=== PATIENT | male | born 2000 | race American Indian/Alaskan Native ===

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

== ENCOUNTER 2019-03-16 12:00 | Emergency (ER) | payer SELFPAY ==
[2019-03-16 12:23] VITALS: BP 137/75
--- NOTE | 2019-03-16 12:31 | Event Note ---
ED Screening Note Date of service: 03/16/19 Time: 12:29 ED Screening Note: 18 yo M w/ hx of asthma presents w/ SOB. Reports onset of cough, fever, body aches 2 days ago. Pt states he ran out of his inhaler. Actively coughing, wheezing noted on exam. O2 sats normal. Albuterol/atrovent nebs ordered. Pt transported by RN to start neb treatment. This initial assessment/diagnostic orders/clinical plan/treatment(s) is/are subject to change based on patients health status, clinical progression and re- assessment by fellow clinical providers in the ED. Further treatment and workup at subsequent clinical providers discretion. Patient/guardian urged not to elope from the ED as their condition may be serious if not clinically assessed and managed. Initial orders include: albuterol/atrovent nebs CXR Rapid flu
[2019-03-16] MEDS: ALBUTEROL 2.5 MG/3 ML NEBU IH ONE (12:38)
[2019-03-16] MEDS: IPRATROPIUM 0.02% NEBU 2.5 ML IH ONE (12:38)
--- NOTE | 2019-03-16 13:13 | Emergency Department Report ---
ED Asthma HPI - General Chief Complaint: Upper Respiratory Infection Stated Complaint: flu sym Time Seen by Provider: 03/16/19 12:58 Source: patient Mode of arrival: Ambulatory Limitations: No Limitations - History of Present Illness MD Complaint: "asthma attack", shortness of breath, wheezing -: days(s) (3) Severity: mild, moderate Context: recent URI, ran out of meds Associated Symptoms: dry cough - Related Data Current Asthma Therapy: inhaled bronchodilator (but ramn out) Previous Rx's Medication Instructions Recorded Last Taken Type predniSONE [Deltasone] 3 tab PO QDAY 3 Days #9 tab 10/16/18 Unknown Rx Albuterol INH(or & Nicu Only) 2 puff IH QID PRN #1 device 03/16/19 Unknown Rx [ProAir HFA Inhaler] Montelukast [Singulair] 10 mg PO QPM #7 tablet 03/16/19 Unknown Rx predniSONE [Deltasone] 50 mg PO QDAY #7 tab 03/16/19 Unknown Rx Allergies Allergy/AdvReac Type Severity Reaction Status Date / Time amoxicillin Allergy Unknown Verified 10/16/18 16:08 coconut Allergy Unknown Verified 10/16/18 16:08 Penicillins Allergy Unknown Verified 10/16/18 16:08 strawberry Allergy Unknown Verified 10/16/18 16:08 ED Review of Systems ROS: Stated complaint: flu sym Other details as noted in HPI Comment: All other systems reviewed and negative ED Past Medical Hx - Past Medical History Previous Medical History?: Yes Hx Hypertension: Yes Hx Asthma: Yes - Surgical History Past Surgical History?: No - Social History Smoking Status: Never Smoker Substance Use Type: Marijuana - Medications Home Medications: Home Medications Medication Instructions Recorded Confirmed Last Taken Type predniSONE [Deltasone] 3 tab PO QDAY 3 Days #9 tab 10/16/18 Unknown Rx Albuterol INH(or & Nicu Only) 2 puff IH QID PRN #1 device 03/16/19 Unknown Rx [ProAir HFA Inhaler] Montelukast [Singulair] 10 mg PO QPM #7 tablet 03/16/19 Unknown Rx predniSONE [Deltasone] 50 mg PO QDAY #7 tab 03/16/19 Unknown Rx ED Physical Exam - General Limitations: No Limitations General appearance: alert, in no apparent distress - Head Head exam: Present: atraumatic, normocephalic - Eye Eye exam: Present: normal appearance - ENT ENT exam: Present: mucous membranes moist - Neck Neck exam: Present: normal inspection - Respiratory Respiratory exam: Present: normal lung sounds bilaterally, wheezes. Absent: respiratory distress, rales, rhonchi, chest wall tenderness, accessory muscle use - Cardiovascular Cardiovascular Exam: Present: regular rate, normal rhythm. Absent: systolic murmur, diastolic murmur, rubs, gallop - GI/Abdominal GI/Abdominal exam: Present: soft, normal bowel sounds. Absent: distended, tenderness - Rectal Rectal exam: Present: deferred - Extremities Exam Extremities exam: Present: normal inspection - Back Exam Back exam: Present: normal inspection - Neurological Exam Neurological exam: Present: alert, oriented X3 - Psychiatric Psychiatric exam: Present: normal affect, normal mood - Skin Skin exam: Present: warm, dry, intact, normal color. Absent: rash ED Course Vital Signs 03/16/19 03/16/19 12:05 12:23 Temperature 99.7 F H 99.1 F Pulse Rate 97 H 95 H Respiratory 16 22 Rate Blood Pressure 137/75 137/75 O2 Sat by Pulse 97 99 Oximetry ED Medical Decision Making - Radiology Data Radiology results: report reviewed [facility] [address] [place] [address] XRay Report Signed Patient: HALLE ENGLISH MR#: [id number] 9 : 2000 Acct:[id number] Age/Sex: 18 / M ADM Date: 03/16/19 Loc: ED Attending Dr: Ordering Physician: JAYCEE WHITE MD Date of Service: 03/16/19 Procedure(s): XR chest routine 2V Accession Number(s): [id number] cc: JAYCEE WHITE MD Fluoro Time In Minutes: CHEST 2 VIEWS INDICATION / CLINICAL INFORMATION: cough, sob. COMPARISON: 10/16/2018 FINDINGS: SUPPORT DEVICES: None. HEART / MEDIASTINUM: No significant abnormality. LUNGS / PLEURA: No significant pulmonary or pleural abnormality. No pneumothorax. ADDITIONAL FINDINGS: No significant additional findings. IMPRESSION: 1. No acute findings. Signer Name: Antony Wu MD Signed: 03/16/2019 1:27 PM Workstation Name: [id number] Transcribed By: JASPER Dictated By: Antony Wu MD Electronically Authenticated By: Antony Wu MD Signed Date/Time: 03/16/191326 DD/ 26 TD/TT: - Medical Decision Making MDM This patient presents with dyspnea, most likely secondary to URI and Asthma. Differential diagnosis includes Asthma. Presentation not consistent with acute cardiac etiologies to include ACS , CHF, pericardial effusion / tamponade . Presentation not consistent with acute respiratory etiologies to include acute PE , pneumothorax , asthma, COPD exacerbation, allergic etiologies, or infectious etiologies such as PNA. Presentation also not consistent with non-cardiopulmonary causes to include toxidromes, metabolic etiologies such as acidemia or electrolyte derangements, sepsis, neurologic causes (i.e. demyelinating diseases). Symptoms improved with Albuterol and steroids. Able to ambulate and tolerate oral. Speaks in full sentences Plan: supplemental O2, CXR, labs, troponin, close hemodynamic monitoring, serial reassessment Critical care attestation.: If time is entered above; I have spent that time in minutes in the direct care of this critically ill patient, excluding procedure time. ED Disposition Clinical Impression: Asthma attack, URI (upper respiratory infection) Disposition: - TO HOME OR SELFCARE Is pt being admited?: No Does the pt Need Aspirin: No Condition: Stable Instructions: Asthma (ED), Upper Respiratory Infection (ED) Prescriptions: predniSONE [Deltasone] 50 mg PO QDAY #7 tab Albuterol INH(or & Nicu Only) [ProAir HFA Inhaler] 2 puff IH QID PRN #1 device PRN Reason: Shortness Of Breath Montelukast [Singulair] 10 mg PO QPM #7 tablet Referrals: LOYD NAGY MD [Staff Physician] - 2-3 Days
[2019-03-16] MEDS: methylPREDNISolone Sod Succinate 125 MG/2 ML INJ IV ONE (13:30)
[2019-03-16] MEDS: predniSONE 50 MG TAB PO STA (13:30)
--- NOTE | 2019-03-16 13:32 | XRay Report ---
CHEST 2 VIEWS INDICATION / CLINICAL INFORMATION: cough, sob. COMPARISON: 10/16/2018 FINDINGS: SUPPORT DEVICES: None. HEART / MEDIASTINUM: No significant abnormality. LUNGS / PLEURA: No significant pulmonary or pleural abnormality. No pneumothorax. ADDITIONAL FINDINGS: No significant additional findings. IMPRESSION: 1. No acute findings. Signer Name: Antony Wu MD Signed: 03/16/2019 1:27 PM Workstation Name: [id number]
[2019-03-16] MEDS: IBUPROFEN 800 MG TAB PO ONE (15:24)
== END 2019-03-16 15:33 | disposition home or self-care (01) ==
LOC: ED 12:00
DX: J45.909 Unspecified asthma, uncomplicated (principal); J06.9 Acute upper respiratory infection, unspecified; I10 Essential (primary) hypertension; F12.10 Cannabis abuse, uncomplicated; Z79.899 Other long term (current) drug therapy; Z88.1 Allergy status to other antibiotic agents; Z88.0 Allergy status to penicillin; Z91.018 Allergy to other foods
CPT/HCPCS: 71046; 87400; 94640; 99284; J7512

== ENCOUNTER 2020-04-16 19:20 | Emergency (ER) | payer SELFPAY ==
[2020-04-16 20:30] VITALS: BP 128/76
--- NOTE | 2020-04-16 20:36 | Emergency Department Report ---
ED Male HPI - General Stated complaint: POSS STD/PENILE DISCHARGE Time Seen by Provider: 04/16/20 20:30 Source: patient, RN notes reviewed Limitations: No Limitations - History of Present Illness Initial comments: This is a 19-year-old male nontoxic, well nourished in appearance, no acute signs of distress presents to the ED with c/o of penile discharge x1 day. Patient describes penile discharge as whitish in color and is intermittent. Stated worse in the mornings. Patient denies any testicular pain or swelling. Patient denies any penile ulcers or lesions. Patient denies any nausea, vomitin g, chest pain, shortness of breathe, fever, chills, headache, back pain, numbness, tingling, stiff neck. Patient denies any urinary symptoms. MD Complaint: penile discharge -: days(s) Location: penis Radiation: none Severity scale (0 -10): 0 Consistency: intermittent Improves with: none Worsens with: none discharge. denies: swelling, mass, rash, urinary retention, blood in urine, dysuria, fever, nausea/vomiting, incontinence - Related Data Sexually active: Yes Previous Rx's Medication Instructions Recorded Last Taken Type predniSONE [Deltasone] 3 tab PO QDAY 3 Days #9 tab 10/16/18 Unknown Rx Albuterol Mdi (or & Nicu Only) 2 puff IH QID PRN #1 device 03/16/19 Unknown Rx [ProAir HFA Inhaler] Montelukast [Singulair] 10 mg PO QPM #7 tablet 03/16/19 Unknown Rx predniSONE [Deltasone] 50 mg PO QDAY #7 tab 03/16/19 Unknown Rx Allergies Allergy/AdvReac Type Severity Reaction Status Date / Time amoxicillin Allergy Unknown Verified 10/16/18 16:08 coconut Allergy Unknown Verified 10/16/18 16:08 Penicillins Allergy Unknown Verified 10/16/18 16:08 strawberry Allergy Unknown Verified 10/16/18 16:08 ED Review of Systems ROS: Stated complaint: POSS STD/PENILE DISCHARGE Other details as noted in HPI Comment: All other systems reviewed and negative Constitutional: denies: chills, fever Eyes: denies: eye pain, eye discharge, vision change ENT: denies: ear pain, throat pain Respiratory: denies: cough, shortness of breath, wheezing Cardiovascular: denies: chest pain, palpitations Endocrine: no symptoms reported Gastrointestinal: denies: abdominal pain, nausea, diarrhea Genitourinary: denies: urgency, dysuria Musculoskeletal: denies: back pain, joint swelling, arthralgia Skin: denies: rash, lesions Neurological: denies: headache, weakness, paresthesias Psychiatric: denies: anxiety, depression Hematological/Lymphatic: denies: easy bleeding, easy bruising ED Past Medical Hx - Past Medical History Hx Hypertension: Yes Hx Asthma: Yes - Social History Smoking Status: Never Smoker Substance Use Type: Marijuana - Medications Home Medications: Home Medications Medication Instructions Recorded Confirmed Last Taken Type predniSONE [Deltasone] 3 tab PO QDAY 3 Days #9 tab 10/16/18 Unknown Rx Albuterol Mdi (or & Nicu Only) 2 puff IH QID PRN #1 device 03/16/19 Unknown Rx [ProAir HFA Inhaler] Montelukast [Singulair] 10 mg PO QPM #7 tablet 03/16/19 Unknown Rx predniSONE [Deltasone] 50 mg PO QDAY #7 tab 03/16/19 Unknown Rx ED Physical Exam - General General appearance: alert, in no apparent distress - Head Head exam: Present: atraumatic, normocephalic - Eye Eye exam: Present: normal appearance - Neck Neck exam: Present: normal inspection, full ROM - Respiratory Respiratory exam: Absent: respiratory distress - Cardiovascular Cardiovascular Exam: Present: regular rate - GI/Abdominal GI/Abdominal exam: Present: soft. Absent: distended, tenderness - Extremities Exam Extremities exam: Present: full ROM - Back Exam Back exam: Present: full ROM - Neurological Exam Neurological exam: Present: alert, oriented X3, normal gait - Psychiatric Psychiatric exam: Present: normal affect, normal mood - Skin Skin exam: Present: warm, dry, intact, normal color. Absent: rash ED Course Vital Signs 04/16/20 20:26 Temperature 98.4 F Pulse Rate 76 Respiratory 16 Rate Blood Pressure 128/76 O2 Sat by Pulse 99 Oximetry - Reevaluation(s) Reevaluation #1: 04/16/20 20:34 Patient is speaking in full sentences with no signs of distress noted. ED Medical Decision Making - Medical Decision Making This is a 19-year-old male that presents with possible STD. Patient is stable and was examined by me. Patient was given referrals to several different providers and clinics for STD testing with possible treatment. Patient does not present with any emergent urinary symptoms. Vital signs are stable. At time of discharge, the patient does not seem toxic or ill in appearance. No acute signs of distress noted. Patient agrees to discharge treatment plan of care. No further questions noted by the patient. Critical care attestation.: If time is entered above; I have spent that time in minutes in the direct care of this critically ill patient, excluding procedure time. ED Disposition Clinical Impression: Possible exposure to STD Disposition: MED SCREENING EXAM-LEFT Is pt being admited?: No Does the pt Need Aspirin: No Condition: Stable Instructions: Safe Sex Additional Instructions: Follow-up with the medical referrals that you have been provided today as soon as possible or if symptoms worsen and continue return to emergency room as soon as possible. Referrals: PRIMARY CARE, [Referring] - LOYD ROSALES MD [Staff Physician] - [facility] [Outside] - [facility] [Provider Group] - [facility] Time of Disposition: 20:36
== END 2020-04-16 20:58 | disposition left against medical advice (07) ==
LOC: ED 19:20
DX: R36.9 Urethral discharge, unspecified (principal); Z20.2 Contact with and (suspected) exposure to infections with a predominantly sexual mode of transmission; Z53.21 Procedure and treatment not carried out due to patient leaving prior to being seen by health care provider